=== PATIENT | female | born 1955 | race Caucasian/White ===

== ENCOUNTER 2018-05-10 08:46 | Outpatient (CLI) | payer SELFPAY ==
[2018-05-10 13:58] LABS: HEMOGLOBIN A1C 0.64 g/dL; HEMOGLOBIN A1C % 6.7 % (4.6-6.2)
== END 2018-05-10 23:59 | disposition home or self-care (01) ==
LOC: LAB.WCP 08:46
PROVIDERS: ATTEND Family Medicine
DX: E11.9 Type 2 diabetes mellitus without complications (principal)
CPT/HCPCS: 36415; 83036